=== PATIENT | male | born 1990 | race Caucasian/White ===

== ENCOUNTER 2021-06-23 20:23 | Emergency (ER) | payer BC ==
[~2021-06-23] VITALS: Ht 172.7 cm; Wt 82.1 kg
[2021-06-23 20:45] VITALS: BP 144/77
--- NOTE | 2021-06-23 20:55 | NUR ---
PT BIBSELF FOR C/O OF RIGHT THIGH CELLULITIS STATING POSSIBLE INFECTION. PT IS A/OX4. CURRENTLY ON RA SHOWING NO S/S OF RESP DISTRESS/SOB. VSS. WILL CONTINUE TO MONITOR AND ASSESS FOR ANY CHANGES.
[2021-06-23] MEDS ORDERED: LIDOCAINE 1%-EPI 1:100,000 20 ML VIAL ONE (20:58)
[2021-06-23] MEDS ORDERED: SULFAMETH/TRIMETH 800/160 MG 1 UDTAB TABLET PO ONE (21:00)
[2021-06-23] MEDS ORDERED: SULFAMETH/TRIMETH 800/160 MG 1 UDTAB TABLET ONE (21:02)
[2021-06-23] MEDS ORDERED: SULF1TAB48 PO (21:18)
[2021-06-23] MEDS ORDERED: IBUP-1955 PO (21:18)
[2021-06-23] MEDS ORDERED: MUPI22OI2 TP (21:18)
== END 2021-06-23 21:36 | disposition home or self-care (01) ==
LOC: ER 20:27
DX: L02.415 Cutaneous abscess of right lower limb (principal); J45.909 Unspecified asthma, uncomplicated
CPT/HCPCS: 10060; 76882; 99284; J3490